=== PATIENT | male | born 1970 | race American Indian/Alaskan Native ===

== ENCOUNTER 2017-04-18 00:51 | Emergency (ER) | payer MEDICAID ==
[2017-04-18 00:51] VITALS: BMI 29.8
[2017-04-18 01:05] VITALS: RESP 18; TEMP 97.5; O2SAT 97
[2017-04-18] MEDS ORDERED: Lidocaine 1% Inj (20ml) INFIL ONE (01:07)
[2017-04-18] MEDS ORDERED: Lidocaine 1% Inj (20ml) ONE (01:09)
[2017-04-18] MEDS ORDERED: Lidocaine 2% Inj (20ml) ONE (01:10)
--- NOTE | 2017-04-18 01:12 | C.PDOC ---
46 year old male who presents to the ED with complaints of swelling, redness, and pain to the right index finger for the last 2 days. Patient reports he opened a box at work 1 week ago with a razor, and accidentally cut the affected finger. Patient admits the cut had healed well initially. Denies fever or drainage. Patient is up-to-date with tetanus shot. No other physical complaints at this time. (Li Ordoñez) History Per: Patient History/Exam Limitations: no limitations Onset/Duration Of Symptoms: Days (2 days ) Current Symptoms Are (Timing): Still Present Recent travel outside of the [place]: No Time Seen by Provider: 04/18/17 00:56 Chief Complaint (Nursing): Upper Extremity Problem/Injury Past Medical History Reviewed: Historical Data, Nursing Documentation, Vital Signs - Medical History PMH: No Chronic Diseases Surgical History: No Surg Hx Family History: States: No Known Family Hx - Social History Hx Alcohol Use: No Hx Substance Use: No - Immunization History Hx Tetanus Toxoid Vaccination: No Hx Influenza Vaccination: No Hx Pneumococcal Vaccination: No Vital Signs: Last Vital Signs Temp 97.5 F L 04/18/17 01:00 Pulse 70 04/18/17 01:39 Resp 18 04/18/17 01:00 BP 145/76 04/18/17 01:39 Pulse Ox 97 04/18/17 01:37 Review Of Systems Except As Marked, All Systems Reviewed And Found Negative. Skin: Positive for: Other (redness and swelling to right index finger) Physical Exam - Physical Exam Appears: Well, Non-toxic, No Acute Distress Skin: Warm, Dry, Other (erythema, swelling, tenderness and flunctuance over volar surface of right second digit at DIP) Head: Atraumatic, Normacephalic Eye(s): bilateral: Normal Inspection Oral Mucosa: Moist Extremity: Normal ROM, Capillary Refill (< 2 seconds), Other (see skin) Neurological/Psych: Oriented x3, Normal Speech, Other (no focal deficits) ED Course And Treatment O2 Sat by Pulse Oximetry: 97 (room air) Pulse Ox Interpretation: Normal - Incision & Drainage Of Abscess Anesthesia: Lidocaine 1% (digital block) Prep Used: Betadine Procedure: Incised W/Scalpel Blade#: (15), Drained Pus, Irrigated Cavity W/ Saline, Cultures Obtained And Sent To Lab Medical Decision Making Medical Decision Making: Impression: abscess of digit Plan: * I&D Progress: Patient tolerated well. Wound dressed with bandage. Dr Person advised no antibiotics needed after I&D. Patient instructed on wound care (Li Ordoñez) pt with a small abscess to the digit. PA acheived analgesia with a digitial block and performed and I/D. Reported purulent drainage approx 3 cc. There was no surrounding cellulitis. . Pt is not immunocompromised. There is no indication for abx at this time. (Shahid Person) Disposition Counseled Patient/Family Regarding: Diagnosis, Need For Followup - Disposition Disposition Time: 01:30 - POA Present On Arrival: None - Disposition Referrals: Susana Cruz MD [Staff Provider] - Disposition: HOME/ ROUTINE Condition: STABLE Additional Instructions: Keep wound clean and dry Change dressing 2 times daily follow up for wound check in 2 days with your primary doctor or clinic Instructions: Abscess Incision and Drainage (ED) Forms: [employer] (Czech) - Clinical Impression Clinical Impression: Abscess of finger of right hand - Scribe Statement The provider has reviewed the documentation as recorded by the Scribe - Scribe Statement Mary Jennings All medical record entries made by the Scribe were at my direction and personally dictated by me. I have reviewed the chart and agree that the record accurately reflects my personal performance of the history, physical exam, medical decision making, and the department course for this patient. I have also personally directed, reviewed, and agree with the discharge instructions and disposition. (Li Ordoñez)
[2017-04-18] MEDS ORDERED: Bacitracin 500 Units/gm Oint Foilpak UD ONE (01:31)
[2017-04-18 01:40] VITALS: BP 145/76; PULSE 70
== END 2017-04-18 01:40 | disposition home or self-care (01) ==
LOC: C.ER 00:51
DX: L02.511 Cutaneous abscess of right hand (principal)

== ENCOUNTER 2017-06-22 06:06 | Emergency (ER) | payer MEDICAID ==
[2017-06-22 06:07] VITALS: BMI 29.8
[2017-06-22 06:18] VITALS: O2SAT 97
--- NOTE | 2017-06-22 07:45 | C.PDOC ---
History Of Present Illness 47 y/o male presents to ED with complaints of cough associated with plueritic chest pain that began few days ago. Denies fever, SOB, or any other physical complaints. Time Seen by Provider: 06/22/17 07:31 Chief Complaint (Nursing): Cough, Cold, Congestion History Per: Patient History/Exam Limitations: no limitations Onset/Duration Of Symptoms: Days Current Symptoms Are (Timing): Still Present Recent travel outside of the [place]: No Past Medical History Reviewed: Historical Data, Nursing Documentation, Vital Signs Vital Signs: Last Vital Signs Temp 97.9 F 06/22/17 08:55 Pulse 64 06/22/17 08:55 Resp 18 06/22/17 08:55 BP 128/89 06/22/17 08:55 Pulse Ox 97 06/22/17 08:55 Surgical History: No Surg Hx Family History: States: No Known Family Hx - Social History Hx Alcohol Use: No Hx Substance Use: No - Immunization History Hx Tetanus Toxoid Vaccination: No Hx Influenza Vaccination: No Hx Pneumococcal Vaccination: No Review Of Systems Constitutional: Negative for: Fever, Chills Cardiovascular: Positive for: Chest Pain (pleuritic). Negative for: Palpitations Respiratory: Positive for: Cough. Negative for: Shortness of Breath Gastrointestinal: Negative for: Nausea, Vomiting, Diarrhea Neurological: Negative for: Weakness, Numbness Physical Exam - Physical Exam Appears: Well, Non-toxic, No Acute Distress Skin: Normal Color, Warm, Dry Head: Atraumatic, Normacephalic Eye(s): bilateral: Normal Inspection Ear(s): Bilateral: Normal Oral Mucosa: Moist Throat: Normal, No Erythema, No Exudate Neck: Supple Chest: Symmetrical, No Tenderness Cardiovascular: Rhythm Regular Respiratory: Normal Breath Sounds, No Decreased Breath Sounds, No Rales, No Rhonchi, No Wheezing Gastrointestinal/Abdominal: Soft, No Tenderness, No Distention, No Guarding, No Rebound Neurological/Psych: Oriented x3, Normal Speech, Normal Cognition ED Course And Treatment O2 Sat by Pulse Oximetry: 97 (RA) Pulse Ox Interpretation: Normal - Other Rad CXR X-Ray: Viewed By Me, Read By Radiologist Interpretation: Chest x-ray two views. History: Cough. Pleuritic chest pain. Comparison: None available. Findings: No focal infiltrate or effusion. Small nodular density in the right midlung zone may represent prominent vessel on end. Right hilar prominence. Heart size normal limits. Degenerative changes in the spine and shoulders. Impression: No focal infiltrate or effusion. Small nodular density in the right midlung zone may represent prominent vessel on end. Right hilar prominence. Medical Decision Making Medical Decision Making: Ordered CXR. 833 am cxr neg for infiltrate; ? nodular density vs vessel on end. discussed with patient, given copy of report to bring to PMD for re-eval. Disposition Counseled Patient/Family Regarding: Studies Performed, Diagnosis, Need For Followup - Disposition Referrals: Susana Cruz MD [Staff Provider] - Disposition: HOME/ ROUTINE Disposition Time: 08:35 Condition: GOOD Additional Instructions: Drink increased fluids, avoid dairy for a few days- makes secretions thick. Tylenol or Motrin for pain when coughing if needed. Follow up with Dr Cruz- bring copy of xray report with you rto show to him. Instructions: Acute Bronchitis, Adult (DC) Forms: General Discharge Instructions, [facility] (Maltese), Work Excuse - Clinical Impression Clinical Impression: Bronchitis - PA / BOAT OFFICER / Resident Statement MD/DO has reviewed & agrees with the documentation as recorded. - Scribe Statement The provider has reviewed the documentation as recorded by the Scribe Myron Mayer All medical record entries made by the Mannyibaj were at my direction and personally dictated by me. I have reviewed the chart and agree that the record accurately reflects my personal performance of the history, physical exam, medical decision making, and the department course for this patient. I have also personally directed, reviewed, and agree with the discharge instructions and disposition.
--- NOTE | 2017-06-22 08:29 | RAD ---
Chest x-ray two views History: Cough. Pleuritic chest pain. Comparison: None available. Findings: No focal infiltrate or effusion. Small nodular density in the right midlung zone may represent prominent vessel on end. Right hilar prominence. Heart size normal limits. Degenerative changes in the spine and shoulders. Impression: No focal infiltrate or effusion. Small nodular density in the right midlung zone may represent prominent vessel on end. Right hilar prominence.
[2017-06-22 08:56] VITALS: BP 128/89; PULSE 64; RESP 18; TEMP 97.9
== END 2017-06-22 08:56 | disposition home or self-care (01) ==
LOC: C.ER 06:06
DX: J40 Bronchitis, not specified as acute or chronic (principal)

== ENCOUNTER 2017-12-25 09:07 | Emergency (ER) | payer MEDICAID ==
[2017-12-25 09:08] VITALS: BMI 29.8
[2017-12-25 09:13] VITALS: BP 123/80; PULSE 81; RESP 18; TEMP 98; O2SAT 98
--- NOTE | 2017-12-25 09:31 | C.PDOC ---
History Of Present Illness 47 y/o male presents to the ED c/o chronic back pain for three days. The patient states the pain worsens with movement. He admits to taking oxycodone and methadone for pain management. The patient also c/o of muscle spasms. He denies any weakness or numbness. Time Seen by Provider: 12/25/17 09:18 Chief Complaint (Nursing): Back Pain History Per: Patient History/Exam Limitations: no limitations Onset/Duration Of Symptoms: Days Current Symptoms Are (Timing): Still Present Quality Of Discomfort: "Pain" Exacerbating Factor(s): Movement Recent travel outside of the [place]: No Past Medical History Reviewed: Historical Data, Nursing Documentation, Vital Signs Vital Signs: Last Vital Signs Temp 98.0 F 12/25/17 09:11 Pulse 81 12/25/17 09:11 Resp 18 12/25/17 09:11 BP 123/80 12/25/17 09:11 Pulse Ox 98 12/25/17 10:47 - Medical History Other PMH: Herniated Disc Surgical History: No Surg Hx Family History: States: Unknown Family Hx - Social History Hx Alcohol Use: No Hx Substance Use: No - Immunization History Hx Tetanus Toxoid Vaccination: No Hx Influenza Vaccination: No Hx Pneumococcal Vaccination: No Review Of Systems Except As Marked, All Systems Reviewed And Found Negative. Constitutional: Negative for: Fever Musculoskeletal: Positive for: Back Pain Skin: Negative for: Lesions Neurological: Negative for: Weakness, Numbness Physical Exam - Physical Exam Appears: Non-toxic, No Acute Distress Skin: Warm, No Ecchymosis Head: Atraumatic, Normacephalic Eye(s): bilateral: PERRL, EOMI Gastrointestinal/Abdominal: No Other (no gallbladder dysfunction) Back: Other (diffuse hypersenitivity of lower back) Extremity: Normal ROM Extremity: Bilateral: Normal Color And Temperature, Normal ROM Neurological/Psych: Oriented x3, Normal Speech Additional Physical Exam Comments: no saddle anesthesia ED Course And Treatment O2 Sat by Pulse Oximetry: 98 (RA) Pulse Ox Interpretation: Normal Medical Decision Making Medical Decision Making: Patient was advised to see [facility] for referral for spinal injection and surgical consult. Prescription for muscle relax given. Disposition - Disposition Referrals: Susana Cruz MD [Staff Provider] - Disposition: HOME/ ROUTINE Disposition Time: 09:30 Condition: GOOD Additional Instructions: SPENCER DRAUGHN, thank you for letting us take care of you today. Your provider was Jossue Loera DO and you were treated for BACK PAIN. The emergency medical care you received today was directed at your acute symptoms. If you were prescribed any medication, please fill it and take as directed. It may take several days for your symptoms to resolve. Return to the Emergency Department if your symptoms worsen, do not improve, or if you have any other problems. Please contact your doctor or call one of the physicians/clinics you have been referred to that are listed on the Patient Visit Information form that is included in your discharge packet. Bring any paperwork you were given at discharge with you along with any medications you are taking to your follow up visit. Our treatment cannot replace ongoing medical care by a primary care provider outside of the emergency department. Thank you for allowing the [facility] team to be part of your care today. Follow up with Dr. Cruz for spinal injection referrals and possible surgery. Prescriptions: Cyclobenzaprine [Cyclobenzaprine HCl] 10 mg PO Q8 PRN #20 tab PRN Reason: Muscle Spasm Instructions: Low Back Pain (DC) Forms: [facility] (Nigerian) - Clinical Impression Clinical Impression: Low back pain - PA / INSTRUCTIONAL MATERIALS DIRECTOR / Resident Statement MD/DO has reviewed & agrees with the documentation as recorded. - Scribe Statement The provider has reviewed the documentation as recorded by the Scribe (Anastacia Rojas) All medical record entries made by the Scribe were at my direction and personally dictated by me. I have reviewed the chart and agree that the record accurately reflects my personal performance of the history, physical exam, medical decision making, and the department course for this patient. I have also personally directed, reviewed, and agree with the discharge instructions and disposition.
== END 2017-12-25 09:57 | disposition home or self-care (01) ==
LOC: C.ER 09:07
DX: M54.5 Low back pain (principal)

== ENCOUNTER 2018-02-14 10:47 | Emergency (ER) | payer MEDICAID ==
[2018-02-14 11:05] VITALS: BMI 29.0
--- NOTE | 2018-02-14 11:30 | C.PDOC ---
History Of Present Illness 47 y/o male presents to the ED requesting detox from heroin. Patient admits he last used this morning, about 3 bags. At this time he offers no physical complaints. Patient otherwise denies any suicidal or homicidal ideation. Time Seen by Provider: 02/14/18 11:11 Chief Complaint (Nursing): Substance Abuse History Per: Patient History/Exam Limitations: no limitations Onset/Duration Of Symptoms: Days Current Symptoms Are (Timing): Still Present Suicide/Self Injury Attempted (Context): None Modifying Factor(s): Narcotics (Heroin) Past Medical History Reviewed: Historical Data, Nursing Documentation, Vital Signs Vital Signs: Last Vital Signs Temp 98.2 F 02/14/18 11:05 Pulse 88 02/14/18 11:05 Resp 16 02/14/18 11:05 BP 125/86 02/14/18 11:05 Pulse Ox 96 02/14/18 11:05 - Medical History PMH: Back Problems (herniated disc) Surgical History: No Surg Hx Family History: States: Unknown Family Hx - Social History Hx Alcohol Use: No Hx Substance Use: Yes - Immunization History Hx Tetanus Toxoid Vaccination: No Hx Influenza Vaccination: No Hx Pneumococcal Vaccination: No Review Of Systems Constitutional: Negative for: Fever Cardiovascular: Negative for: Chest Pain Respiratory: Negative for: Shortness of Breath Gastrointestinal: Negative for: Nausea, Vomiting Neurological: Negative for: Weakness, Dizziness Psych: Positive for: Other (heroin abuse). Negative for: Suicidal ideation, Withdrawal Physical Exam - Physical Exam Appears: Non-toxic, No Acute Distress Skin: Normal Color, Warm, Dry Head: Atraumatic, Normacephalic Eye(s): bilateral: Normal Inspection Oral Mucosa: Moist Neck: Normal ROM Chest: Symmetrical Cardiovascular: Rhythm Regular, No Murmur Respiratory: Normal Breath Sounds, No Accessory Muscle Use, Other (No res piratory distress) Gastrointestinal/Abdominal: Soft, No Tenderness, No Distention Extremity: Normal ROM, No Calf Tenderness, No Swelling Pulses: Left Dorsalis Pedis: Normal, Right Dorsalis Pedis: Normal Neurological/Psych: Oriented x3, Normal Speech ED Course And Treatment O2 Sat by Pulse Oximetry: 96 (RA) Pulse Ox Interpretation: Normal Medical Decision Making Medical Decision Making: Impression: 47 y/o male with Hx of heroin abuse, seeking detox 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 Horne. Disposition Counseled Patient/Family Regarding: Diagnosis - Disposition Disposition: HOME/ ROUTINE Disposition Time: 11:56 Condition: STABLE Additional Instructions: Follow recommendation given by the crisis team. Instructions: Drug Abuse and Drug Addiction (DC) Forms: [facility] (Luxembourger), General Discharge Instructions, Work Excuse - POA Present On Arrival: None - Clinical Impression Clinical Impression: Drug abuse - Scribe Statement The provider has reviewed the documentation as recorded by the Scribe (Piper Harvey) Provider Attestation: All medical record entries made by the Scribe were at my direction and personally dictated by me. I have reviewed the chart and agree that the record accurately reflects my personal performance of the history, physical exam, medical decision making, and the department course for this patient. I have also personally directed, reviewed, and agree with the discharge instructions and disposition.
[2018-02-14 12:17] VITALS: BP 136/79; PULSE 78; RESP 18; TEMP 98; O2SAT 98
== END 2018-02-14 12:17 | disposition home or self-care (01) ==
LOC: C.ER 10:47
DX: F19.10 Other psychoactive substance abuse, uncomplicated (principal)

== ENCOUNTER 2018-03-12 08:37 | Inpatient (IN) | payer MEDICAID ==
[2018-03-12 08:37] VITALS: BMI 29.0
[2018-03-12 09:11] LABS: BASO # 0.1 K/uL (0.0-0.2); BASO % 1.2 % (0.0-2.0); EOS # 0.1 K/uL (0.0-0.7); HEMOGLOBIN 13.8 g/dL (12.0-18.0); LYMPH # 2.3 K/uL (1.0-4.3); LYMPH % 45.7 % (20.0-40.0); MEAN CELL VOLUME 87.8 fL (80.0-94.0); MEAN CORPUSCULAR HEMOGLOBIN 29.5 pg (27.0-31.0); MEAN CORPUSCULAR HGB CONC 33.6 g/dL (33.0-37.0); MONO # 0.4 K/uL (0.0-0.8); MONO % 8.5 % (0.0-10.0); NEUT # 2.2 K/uL (1.8-7.0); NEUT % 42.6 % (50.0-75.0); NRBC % 0.1 % (0.0-2.0); RBC 4.69 Mil/uL (4.40-5.90); RED CELL DISTRIBUTION WIDTH 12.3 % (11.5-14.5); WHITE BLOOD COUNT 5.1 K/uL (4.8-10.8)
[2018-03-12 09:23] LABS: ALB/GLOB RATIO 1.4 (1.0-2.1); ALBUMIN 4.3 g/dL (3.5-5.0); ALT/SGPT 48 U/L (21-72); AST/SGOT 43 U/L (17-59); BLOOD UREA NITROGEN 16 mg/dL (9-20); CALCIUM 9.2 mg/dl (8.6-10.4); GFR NON-AFRICAN AMERICAN > 60
--- NOTE | 2018-03-12 09:46 | C.PDOC ---
History Of Present Illness Liborio Jaime is a 47 year old male presents to the ED requesting detoxification from heroin. Patient has been seen in the ED multiple times for same presentation. Denies any SI/HI, visual or auditory hallucinations, or depression. Reports last use of heroin was yesterday, 10-15 bags. Time Seen by Provider: 03/12/18 08:45 Chief Complaint (Nursing): Substance Abuse History Per: Patient History/Exam Limitations: no limitations Onset/Duration Of Symptoms: Days Current Symptoms Are (Timing): Still Present Suicide/Self Injury Attempted (Context): None Modifying Factor(s): Narcotics (heroin) Associated Symptoms: denies: Depression, Suicidal Thoughts, Suicidal Plan Past Medical History Reviewed: Historical Data, Nursing Documentation, Vital Signs Vital Signs: Last Vital Signs Temp 99 F 03/12/18 08:39 Pulse 69 03/12/18 08:39 Resp 18 03/12/18 08:39 BP 119/79 03/12/18 08:39 Pulse Ox 99 03/12/18 08:39 - Medical History PMH: Back Problems (herniated disc) Surgical History: No Surg Hx Family History: States: No Known Family Hx - Social History Hx Alcohol Use: No Hx Substance Use: Yes (heorin snorting daily) - Immunization History Hx Tetanus Toxoid Vaccination: No Hx Influenza Vaccination: No Hx Pneumococcal Vaccination: No Review Of Systems Except As Marked, All Systems Reviewed And Found Negative. Constitutional: Negative for: Fever, Chills Psych: Negative for: Depression, Suicidal ideation Physical Exam - Physical Exam Appears: Non-toxic Skin: Warm, Dry, No Rash Head: Normacephalic Eye(s): bilateral: Normal Inspection Nose: Normal Oral Mucosa: Moist Neck: Normal ROM, Supple Chest: Symmetrical Cardiovascular: Rhythm Regular Respiratory: Normal Breath Sounds, No Rales, No Rhonchi, No Wheezing Gastrointestinal/Abdominal: Soft, No Tenderness Extremity: Normal ROM Neurological/Psych: Oriented x3, Normal Speech Gait: Steady ED Course And Treatment - Laboratory Results Result Diagrams: 03/12/18 09:06 03/12/18 09:06 Lab Interpretation: Normal ECG Interpretation: Normal O2 Sat by Pulse Oximetry: 99 (RA) Pulse Ox Interpretation: Normal Progress Note: Case discussed and patient evaluated by crisis team who request admission to Detox under Dr Cooley's service Reassessment Condition: Unchanged - Physician Consult Information Physician Contacted: Juan David Cooley Outcome Of Conversation: admit Medical Decision Making Medical Decision Making: Plan - Bloodwork - UA [id number] Patient medically clear for detoxification. Disposition Discussed With Dr.: Juan David Cooley Doctor Will See Patient In The: Hospital - Disposition Disposition: HOSPITALIZED Disposition Time: 13:00 Condition: STABLE Forms: [facility] (Bahraini) - POA Present On Arrival: None - Clinical Impression Clinical Impression: Drug dependence, Drug abuse - PA / RECAPPER / Resident Statement MD/DO has reviewed & agrees with the documentation as recorded. - Scribe Statement The provider has reviewed the documentation as recorded by the Scribe Kira Salazar All medical record entries made by the Mannyibaj were at my direction and personally dictated by me. I have reviewed the chart and agree that the record accurately reflects my personal performance of the history, physical exam, medical decision making, and the department course for this patient. I have also personally directed, reviewed, and agree with the discharge instructions and disposition.
[2018-03-12 09:58] LABS: SQUAMOUS EPITHIAL < 1 /hpf (0-5); URINE BILIRUBIN NEGATIVE (NEGATIVE); URINE BLOOD NEGATIVE (NEGATIVE); URINE CLARITY Clear (Clear); URINE COLOR Yellow (YELLOW); URINE GLUCOSE (UA) NORMAL (Normal); URINE LEUKOCYTE ESTERASE NEG Leu/uL (Negative); URINE PROTEIN NEGATIVE (NEGATIVE)
[2018-03-12 10:14] LABS: BARBITURATES, UR NEGATIVE (NEGATIVE); BENZODIAZEPINES, UR NEGATIVE (NEGATIVE); PHENCYCLIDINE, UR NEGATIVE (NEGATIVE)
[2018-03-12 10:18] LABS: OPIATES, UR POSITIVE (NEGATIVE)
--- NOTE | 2018-03-12 14:02 | PCM.BM ---
<Shira Beltre - Last Filed: 03/12/18 14:01> Treatment assets and liabiliti Patient Assests: cooperative, insightful, self-reliant, ADL independent, physically healthy, negotiates basic needs, good past tx response, cognitively intact, good interpersonal skills, strong maeve Patient Liabilities: relationship conflicts, substance abuse - Milieu Protocol Maintain good personal hygiene: daily Encourage regular showers, daily Remind patient to perform daily oral care, daily Assist patient to perform ADL's, every shift Encourage regular showers, every shift Remind patient to perform daily oral care, every shift Assist patient to perform ADL's Maintain personal safety: daily Educate patient to report safety concerns to staff, daily Monitor environment for contraband/sharps, every shift Educate patient to report safety concerns to staff, every shift Monitor environment for contraband/sharps Medication safety: Monitor for expected outcome, potential side effects: every shift, daily, Assess barriers to learning: every shift, daily, Assess readiness for medication education: every shift, daily <Carlee Mckeon - Last Filed: 03/14/18 11:14> Family Contact Family involvement: Famliy/SO not involved - Goals for Treatment Patient goals for treatment: Complete detox and discuss aftercare options with counseling staff. Discharge/Continuing Care - Education Needs Education Needs: Patient Medication, Patient Diagnosis/Disease Process, Patient Coping Skills, Patient Anger Management skills, Patient Placement options, Patient Community resources - Discharge Discharge Criteria: No longer exhibiting s/s of withdrawal, Reduction of target symptoms Discharge to:: Other - Additional Comments 03/14/18 11:13 Pt. is refusing referrals for aftercare at this time. Counseling staff will continue to discuss options for pt. - Treatment Team Participation Discussed with Family/SO: No Was Patient/Family/SO present at Treatment Team Meeting: Yes
[2018-03-12] MEDS ORDERED: Aluminum Hydroxide/Magnesium Hydroxide Susp (30 mL) PO PRN (14:21)
--- NOTE | 2018-03-13 15:27 | PCM.PSYCH ---
Initial Psychiatric Evaluation - Initial Psychiatric Evaluation Type of Admission: Voluntary Legal Status: Capacity Chief Complaint (in patient's own words): "I need to stop this" History of Present Illness and Precipitating Events: The pt is seen, chart reviewed, case discussed. He is a 47 y/o AAM, single w 3 children: 32, 11 and 10 y/o. 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 First time was 12 y/o He has been to detox around 20 times and rehab 2x. No MAT but goes to NA at times Longest sobriety was 3 years and ended this year. He purchases methadone from the street to prevent wdw Used cocaine in the past Smokes 10-20 cug/d Denies others Psych hx: Depressed and anxious but no admissions Family psych hx: Brother used drugs and has schizophrenia Medical hx: Denies Current Medications: Active Medications Generic Name Dose Route Start Last Admin Trade Name Freq PRN Reason Stop Dose Admin Acetaminophen 650 mg 03/12/18 14:21 03/13/18 05:57 Tylenol 325mg Tab PO 650 mg Q4H PRN Administration Fever greater than 101 F Al Hydrox/Mg Hydrox/Simethicone 30 ml 03/12/18 14:21 Maalox 30 Ml PO TID PRN Indigestion / Heartburn Clonidine HCl 0.1 mg 03/12/18 14:21 Catapres PO Q4 PRN COWS Score More or Equal to 5 Dicyclomine HCl 10 mg 03/12/18 14:21 Bentyl PO Q6 PRN Muscle spasm Hydroxyzine HCl 25 mg 03/12/18 14:22 03/13/18 12:55 Atarax PO 25 mg Q6 PRN Administration Agitation Loperamide HCl 2 mg 03/12/18 14:21 Imodium PO Q8 PRN Diarrhea Methadone HCl 15 mg 03/13/18 10:00 03/13/18 10:34 Methadone PO 03/17/18 09:59 15 mg Q24H MAYE Administration Taper Mirtazapine 15 mg 03/13/18 22:00 Remeron PO HS MAYE Ondansetron HCl 4 mg 03/12/18 14:21 Zofran Tab PO Q8 PRN Nausea/Vomiting Trazodone HCl 50 mg 03/12/18 22:00 03/12/18 21:51 Desyrel PO 50 mg HS MAYE Administration Past Psychiatric History - Past Psychiatric History Previous Treatment History: None Pertinent Medical Hx (Current Medical&Sleep Prob, Allergies): Allergies Allergy/AdvReac Type Severity Reaction Status Date / Time No Known Allergies Allergy Verified 12/25/17 09:11 No Known Home Med 03/12/18 Review of Systems - Psychiatric Psychiatric: Abnormal Sleep Pattern, Anhedonia, Anxiety, Change in Appetite, Depression, Difficulty Concentrating, Irritability, Mood Swings. absent: Hallucinations, Homicidal Ideation, Paranoia, Suicidal Ideation Mental Status Examination - Personal Presentation Personal Presentation: Looks stated age - Affect Affect: Constricted - Motor Activity Motor Activity: Calm - Reliability in Providing Information Reliability in Providing Information: Good - Speech Speech: Organized - Mood Mood: Depressed, Anxious - Formal Thought Process Formal Thought Process: No Impairment - Cognitive Functions Orientation: Person, Place, Situation, Time Sensorium: Alert Attention/Concentration: Attentive Abstract Thinking: [place] Estimate of Intelligence: Average Judgement: Intact, as evidence by: Insight regarding need for hospitalization Memory: Recent intact, as evidence by: Ability to recall events of the day, Remote intact, as evidenced by: Abilit to recall sig. life events - Risk Risk: Withdrawal, Diminished functioning - Strength & Assets Inventory Strength & Assets Inventory: Cooperative - Limitations Limitations: Living alone, Other DSM 5 DX - DSM 5 DSM 5 Diagnosis: Opioid withdrawal Opioid use d/o - severe Cocaine use d/o - in remission Depressive d/o - unspecified Tobacco use d/o - severe - Recommended/Plan of Treatment Treatment Recommendations and Plan of Treatment: Taper with methadone Gabapentin for augmentation if needed Remeron for depression and insomnia As needed medications All risks, benefits and alternatives of the meds discussed, and the pt agreed and understood. Attend groups and activities Supportive therapy and psychoeducation [place] for abstinence CBT for relapse prevention Encourage MAT Refer to rehab or IOP, and self-help groups Teach healthy lifestyle methods, i.e. diet, exercise, meditation Smoking cessation with [place] Nicotine patch if needed 34 min Projected ELOS: 4-5 days Prognosis: good w treatment - Smoking Cessation Smoking Cessation Initiated: Yes
--- NOTE | 2018-03-14 17:55 | PCM.PYCHPN ---
Psychiatric Progress Note - Psychiatric Progress Note Patient seen today, length of contact: 15 min Patient Chief Complaint: "I need to stop this" Mental Status Examination - Cognitive Function Orientation: Person, Place, Situation, Time - Mood Mood: Depressed, Anxious - Affect Affect: Constricted - Formal Thought Process Formal Thought Process: No Impairment - Homicidal Ideation Homicidal Ideation: No Goal/Treatment Plan - Goal/Treatment Plan Progress Toward Problem(s) and Goals/Treatment Plan: Taper with methadone Gabapentin for augmentation if needed Remeron for depression and insomnia As needed medications All risks, benefits and alternatives of the meds discussed, and the pt agreed and understood. Attend groups and activities Supportive therapy and psychoeducation [place] for abstinence CBT for relapse prevention Encourage MAT Refer to rehab or IOP, and self-help groups Teach healthy lifestyle methods, i.e. diet, exercise, meditation Smoking cessation with [place] Nicotine patch if needed 34 min
[2018-03-15 06:10] VITALS: BP 98/60; PULSE 61; RESP 20; TEMP 98.3; O2SAT 100
--- NOTE | 2018-03-15 08:30 | PCM.PYCHDC ---
Mental Status Examination - Mental Status Examination Orientation: Person Discharge Summary - Discharge Note Consultations:: List each consultation separately and include: 1. Reason for request. 2. Findings. 3. Follow-up Summary of Hospital Course include:: 1. Description of specific treatment plan utilized for patients during their course of treatmen. 2. Summarize the time- course for resolution of acute symptoms and/or regressed behaviors. 3. Describe issues identified and worked on during hospitalization. 4. Describe medication utilized. 5. Describe medical problems identified and treated. 6. Reassessment of suicide risk Summary of Hospital Course: The pt is seen, chart reviewed, case discussed. He is a 47 y/o AAM, single w 3 children: 32, 11 and 10 y/o. 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 First time was 12 y/o He has been to detox around 20 times and rehab 2x. No MAT but goes to NA at times Longest sobriety was 3 years and ended this year. He purchases methadone from the street to prevent wdw Used cocaine in the past Smokes 10-20 cug/d Denies others Psych hx: Depressed and anxious but no admissions Family psych hx: Brother used drugs and has schizophrenia Medical hx: Denies He was unmotivated and will only go to NA meetings, risk of relapse, OD and even discussed. Rehab and MAT recommended. At least IOP. He said he would think about it. - Final Diagnosis (DSM 5) Condition upon Discharge: STABLE Disposition: HOME/ ROUTINE Follow-up Treatment Plan: Taper with methadone Gabapentin for augmentation if needed Remeron for depression and insomnia As needed medications All risks, benefits and alternatives of the meds discussed, and the pt agreed and understood. Attend groups and activities Supportive therapy and psychoeducation [place] for abstinence CBT for relapse prevention Encourage MAT Refer to rehab or IOP, and self-help groups Teach healthy lifestyle methods, i.e. diet, exercise, meditation Smoking cessation with [place] Nicotine patch if needed 34 min Prescriptions/Medication Reconciliation: hydrOXYzine HCl [Atarax] 25 mg PO BID PRN #30 tab PRN Reason: Agitation Mirtazapine [Remeron] 15 mg PO HS #30 tab
== END 2018-03-15 09:30 | disposition home or self-care (01) ==
LOC: C.ER 08:37 → C.7D 12:36
PROVIDERS: ADMIT Psychiatry & Neurology Psychiatry; ATTEND Psychiatry & Neurology Psychiatry
DX: F11.23 Opioid dependence with withdrawal (principal); F32.9 Major depressive disorder, single episode, unspecified; G47.00 Insomnia, unspecified; Z72.0 Tobacco use; Z81.8 Family history of other mental and behavioral disorders

== ENCOUNTER 2018-04-25 00:31 | Emergency (ER) | payer MEDICAID ==
[2018-04-25 00:31] VITALS: BMI 29.0
[2018-04-25] MEDS ORDERED: Sodium Chloride 0.9% 1,000 ML IV ONE (01:03)
--- NOTE | 2018-04-25 01:03 | C.PDOC ---
History Of Present Illness 47 year old male with PMHx of chronic back pain presents to the ED c/o worsening back pain after coughing and movement for the past 3 days. Patient denies fever, chills, nausea, vomit, diarrhea, bowel incontinence, weakness, numbness, saddle anesthesia. Time Seen by Provider: 04/25/18 01:03 Chief Complaint (Nursing): Back Pain History Per: Patient History/Exam Limitations: no limitations Onset/Duration Of Symptoms: Days Current Symptoms Are (Timing): Still Present Quality Of Discomfort: "Pain" Previous Symptoms: Back Pain Exacerbating Factor(s): Movement Recent travel outside of the [place]: No Additional History Per: Patient Past Medical History Reviewed: Historical Data, Nursing Documentation, Vital Signs Vital Signs: Last Vital Signs Temp 98.3 F 04/25/18 00:32 Pulse 63 04/25/18 00:32 Resp 18 04/25/18 00:32 BP 123/82 04/25/18 00:32 Pulse Ox 98 04/25/18 00:32 - Medical History PMH: Anxiety, Back Problems (herniated disc), Depression Denies: Diabetes, Hepatitis, HIV, HTN, Chronic Kidney Disease, Seizures, Sexually Transmitted Disease Surgical History: No Surg Hx Family History: States: Unknown Family Hx - Social History Hx Alcohol Use: No (Pt. denies) Hx Substance Use: No - Immunization History Hx Tetanus Toxoid Vaccination: No Hx Influenza Vaccination: No Hx Pneumococcal Vaccination: No Review Of Systems Constitutional: Negative for: Fever, Chills Cardiovascular: Negative for: Chest Pain Respiratory: Negative for: Shortness of Breath Gastrointestinal: Negative for: Nausea, Vomiting, Abdominal Pain Musculoskeletal: Positive for: Back Pain Skin: Negative for: Rash Neurological: Negative for: Weakness, Numbness Physical Exam - Physical Exam Appears: Non-toxic, No Acute Distress Skin: Warm, Dry Head: Normacephalic Eye(s): bilateral: Normal Inspection Neck: Supple Chest: Symmetrical Cardiovascular: Rhythm Regular Respiratory: No Rales, Rhonchi (bases bilateral), No Wheezing Gastrointestinal/Abdominal: Soft, No Tenderness, No Guarding, No Rebound Extremity: Bilateral: Atraumatic, Normal ROM, Painful To Bear Weight Neurological/Psych: Oriented x3, Normal Speech, Normal Cognition Gait: Steady ED Course And Treatment - Laboratory Results Result Diagrams: 04/25/18 01:25 04/25/18 01:44 ECG: Interpreted By Me, Viewed By Me ECG Rhythm: Sinus Rhythm (65), Nonspecific Changes O2 Sat by Pulse Oximetry: 98 (ON RA) Pulse Ox Interpretation: Normal - Radiology CXR: Interpreted by Me, Viewed By Me CXR Interpretation: No: Infiltrates, Fracture, Pnemothorax Progress Note: Plan: - VBG. - EKG. - Labs. - CXR. - Duoneb. - IV fluids. - Blood culture. - Influenza A B Reevaluation Time: 03:30 Reassessment Condition: Improved Medical Decision Making Medical Decision Making: Upon provider reevaluation patient is feeling better, is medically stable, and requires no further treatment in the ED at this time. Patient will be discharged home with Rx for z pack, tramamdol and albuterol . Counseling was provided and all questions were answered regarding diagnosis and need for follow up with dr bellamy. There is agreement to discharge plan. Return if symptoms persist or wor sen. Disposition Counseled Patient/Family Regarding: Studies Performed, Diagnosis, Need For Followup, Rx Given - Disposition Referrals: Susana Bellamy MD [Staff Provider] - Disposition: HOME/ ROUTINE Disposition Time: 01:03 Condition: FAIR Additional Instructions: Please return if symptoms recur Prescriptions: Albuterol HFA [Ventolin HFA 90 mcg/actuation (8 g)] 2 puff IH [id number] #1 puff Azithromycin [Zithromax Tri-Cheikh] 500 mg PO DAILY #3 tablet traMADol [Ultram] 50 mg PO TID PRN #15 tab PRN Reason: Pain, Severe (8-10) Instructions: Acute Bronchitis, Low Back Pain (DC) Forms: [facility] (Persian) - Clinical Impression Clinical Impression: Low back pain, Bronchitis - Scribe Statement The provider has reviewed the documentation as recorded by the Scribe Juan Manuel Hare All medical record entries made by the Scribe were at my direction and personally dictated by me. I have reviewed the chart and agree that the record accurately reflects my personal performance of the history, physical exam, medical decision making, and the department course for this patient. I have also personally directed, reviewed, and agree with the discharge instructions and disposition.
[2018-04-25] MEDS ORDERED: Albuterol-Ipratrop 3 mg / 0.5 (3 ml) UD ONE (01:30)
[2018-04-25 01:31] LABS: BASO # 0.1 K/uL (0.0-0.2); BASO % 1.5 % (0.0-2.0); EOS # 0.1 K/uL (0.0-0.7); HEMOGLOBIN 13.3 g/dL (12.0-18.0); LYMPH # 2.1 K/uL (1.0-4.3); LYMPH % 37.4 % (20.0-40.0); MEAN CELL VOLUME 90.1 fL (80.0-94.0); MEAN CORPUSCULAR HEMOGLOBIN 29.3 pg (27.0-31.0); MEAN CORPUSCULAR HGB CONC 32.5 g/dL (33.0-37.0); MEAN PLATELET VOLUME 9.6 fL (7.2-11.7); MONO # 0.4 K/uL (0.0-0.8); MONO % 7.2 % (0.0-10.0); NEUT # 2.9 K/uL (1.8-7.0); NEUT % 51.9 % (50.0-75.0); RBC 4.54 Mil/uL (4.40-5.90); RED CELL DISTRIBUTION WIDTH 12.7 % (11.5-14.5); WHITE BLOOD COUNT 5.5 K/uL (4.8-10.8)
[2018-04-25] MEDS: Albuterol-Ipratrop 3 mg / 0.5 (3 ml) UD IH SCH (01:33)
[2018-04-25 01:34] LABS: VENOUS BLOOD GAS BASE EXCESS 3.1 mmol/L (0.0-2.0); VENOUS BLOOD GAS PCO2 51 mmHg (40-60); VENOUS BLOOD GAS PO2 48 mm/Hg (30-55); VENOUS BLOOD PH 7.37 (7.32-7.43)
[2018-04-25 01:59] LABS: ALB/GLOB RATIO 1.4 (1.0-2.1); ALBUMIN 4.1 g/dL (3.5-5.0); ALT/SGPT 39 U/L (21-72); AST/SGOT 30 U/L (17-59); BLOOD UREA NITROGEN 17 mg/dL (9-20); CALCIUM 8.7 mg/dl (8.6-10.4); GFR NON-AFRICAN AMERICAN > 60
[2018-04-25 02:27] LABS: INR 1.3; PROTHROMBIN TIME 14.2 SECONDS (9.7-12.2)
[2018-04-25 02:40] VITALS: BP 126/81; PULSE 77; RESP 17; TEMP 97.9
[2018-04-25 02:45] VITALS: O2SAT 98
--- NOTE | 2018-04-25 09:50 | RAD ---
Date of service: 04/25/2018 PROCEDURE: CHEST RADIOGRAPH, 1 VIEW HISTORY: SOB COMPARISON: 06/22/2017. FINDINGS: LUNGS: The lungs are well inflated and clear. PLEURA: No pneumothorax or pleural effusion. CARDIOVASCULAR: The heart is normal in size. No aortic atherosclerotic calcifications present. OSSEOUS STRUCTURES: Within normal limits for the patient's age. VISUALIZED UPPER ABDOMEN: Normal. OTHER FINDINGS: None. IMPRESSION: No active pulmonary disease.
--- NOTE | 2018-04-25 18:25 | CARD ---
APPROVED REPORT Date of service: 04/25/2018 EKG Measurement Heart [id number] <Conclusion> Normal sinus rhythm Normal ECG
== END 2018-04-25 03:42 | disposition home or self-care (01) ==
LOC: C.ER 00:31
DX: J40 Bronchitis, not specified as acute or chronic (principal); M54.5 Low back pain; F17.210 Nicotine dependence, cigarettes, uncomplicated
CPT/HCPCS: 71045; 80053; 82803; 85025; 85610; 85730; 87040; 87804; 93005; 94640; 96361; 96374; 99284; J1885; J7030

== ENCOUNTER 2018-08-03 18:42 | Inpatient (IN) | payer MEDICAID ==
[2018-08-03 18:42] VITALS: BMI 29.0
--- NOTE | 2018-08-03 20:00 | C.PDOC ---
History Of Present Illness Patient is a 48-year-old male who presents to the emergency department requesting detox. Patient states he snorts heroin. Has started using heroin since he was a young person. He has no other medical problem. Time Seen by Provider: 08/03/18 19:06 Chief Complaint (Nursing): Substance Abuse History Per: Patient History/Exam Limitations: no limitations Onset/Duration Of Symptoms: Hrs Current Symptoms Are (Timing): Still Present Modifying Factor(s): Other (heroin ) Additional History Per: Patient Past Medical History Reviewed: Historical Data, Nursing Documentation, Vital Signs Vital Signs: Last Vital Signs Temp 98.3 F 08/03/18 18:47 Pulse 57 L 08/03/18 18:47 Resp 20 08/03/18 18:47 BP 137/88 08/03/18 18:47 Pulse Ox 97 08/03/18 18:47 - Medical History PMH: Anxiety, Back Problems (herniated disc), Depression Denies: Diabetes, Hepatitis, HIV, HTN, Chronic Kidney Disease, Seizures, Sexually Transmitted Disease Surgical History: No Surg Hx Family History: States: Unknown Family Hx - Social History Hx Alcohol Use: No (Pt. denies) Hx Substance Use: Yes - Immunization History Hx Tetanus Toxoid Vaccination: No Hx Influenza Vaccination: No Hx Pneumococcal Vaccination: No Review Of Systems Psych: Positive for: Other (heroin detox ). Negative for: Suicidal ideation Physical Exam - Physical Exam Appears: Non-toxic, No Acute Distress Skin: Normal Color, Warm, Dry Head: Atraumatic, Normacephalic Eye(s): bilateral: Normal Inspection Oral Mucosa: Moist Neck: Supple Chest: Symmetrical, No Deformity, No Tenderness Cardiovascular: Rhythm Regular, No Murmur Respiratory: Normal Breath Sounds, No Rales, No Rhonchi, No Wheezing Gastrointestinal/Abdominal: Soft, No Tenderness, No Guarding, No Rebound Extremity: Normal ROM, Capillary Refill (less than 2 seconds ) Neurological/Psych: Oriented x3, Normal Speech, Normal Cognition ED Course And Treatment - Laboratory Results Result Diagrams: 08/03/18 20:02 08/03/18 20:02 O2 Sat by Pulse Oximetry: 97 (on RA ) Pulse Ox Interpretation: Normal Medical Decision Making Medical Decision Making: Progress: Bloodwork and urinalysis ordered and reviewed. On reassessment, patient is resting comfortably and showing no signs of distress. Disposition - Disposition Disposition: HOSPITALIZED Disposition Time: 21:43 Condition: GUARDED Forms: [facility] (German) - Clinical Impression Clinical Impression: Drug dependence - Scribe Statement The provider has reviewed the documentation as recorded by the Scribe (Bekah Goss) Provider Attestation: All medical record entries made by the Scribe were at my direction and person ally dictated by me. I have reviewed the chart and agree that the record accurately reflects my personal performance of the history, physical exam, medical decision making, and the department course for this patient. I have also personally directed, reviewed, and agree with the discharge instructions and disposition. Decision To Admit - Pt Status Changed To: Hospital Disposition Of: Inpatient - Admit Certification Admit to Inpatient:: After my assessment, the patient will require hospitalization for at least two midnights. This is because of the severity of symptoms shown, intensity of services needed, and/or the medical risk in this patient being treated as an outpatient. - InPatient: Physician Admission Certification: I certify that this patient requires 2 or more midnights of care for the following reason:: needs medical detox - . Bed Request Type: Detox Admitting Physician: Juan David Cooley Patient Diagnosis: Drug dependence
[2018-08-03 20:08] LABS: BASO % 1.2 % (0.0-2.0); EOS # 0.1 K/uL (0.0-0.7); EOS % 2.9 % (0.0-4.0); HEMOGLOBIN 12.9 g/dL (12.0-18.0); LYMPH # 1.7 K/uL (1.0-4.3); LYMPH % 45.8 % (20.0-40.0); MEAN CORPUSCULAR HEMOGLOBIN 29.3 pg (27.0-31.0); MEAN CORPUSCULAR HGB CONC 33.3 g/dL (33.0-37.0); MEAN PLATELET VOLUME 9.1 fL (7.2-11.7); MONO # 0.3 K/uL (0.0-0.8); MONO % 6.9 % (0.0-10.0); NEUT # 1.6 K/uL (1.8-7.0); NEUT % 43.2 % (50.0-75.0); NRBC % 0.2 % (0.0-2.0); RBC 4.41 Mil/uL (4.40-5.90); RED CELL DISTRIBUTION WIDTH 12.7 % (11.5-14.5); WHITE BLOOD COUNT 3.7 K/uL (4.8-10.8)
[2018-08-03 20:11] LABS: MEAN CELL VOLUME 88.1 fL (80.0-94.0)
[2018-08-03 20:21] LABS: ALB/GLOB RATIO 1.6 (1.0-2.1); ALBUMIN 4.2 g/dL (3.5-5.0); ALT/SGPT 41 U/L (21-72); AST/SGOT 38 U/L (17-59); BLOOD UREA NITROGEN 13 mg/dL (9-20); CALCIUM 9.3 mg/dl (8.6-10.4); GFR NON-AFRICAN AMERICAN > 60
[2018-08-03 20:37] LABS: SQUAMOUS EPITHIAL < 1 /hpf (0-5); URINE BILIRUBIN NEGATIVE (NEGATIVE); URINE BLOOD NEGATIVE (NEGATIVE); URINE CLARITY Hazy (Clear); URINE COLOR Yellow (YELLOW); URINE GLUCOSE (UA) NORMAL (Normal); URINE LEUKOCYTE ESTERASE NEG Leu/uL (Negative); URINE PROTEIN NEGATIVE (NEGATIVE)
[2018-08-03 20:45] LABS: BARBITURATES, UR NEGATIVE (NEGATIVE); BENZODIAZEPINES, UR NEGATIVE (NEGATIVE); PHENCYCLIDINE, UR NEGATIVE (NEGATIVE)
[2018-08-03 20:58] LABS: OPIATES, UR POSITIVE (NEGATIVE)
--- NOTE | 2018-08-03 22:22 | PCM.BM ---
<Avis Thomas - Last Filed: 08/03/18 22:20> Treatment Plan Problems - Problems identified on initial assessmt Defensive Coping Date Initiated: 08/03/18 Time Initiated: 22:20 Assessment reference: NA Status: Active Chronic Low Self Esteem Date Initiated: 08/03/18 Time Initiated: 22:21 Assessment reference: NA Status: Active Denial Date Initiated: 08/03/18 Time Initiated: 22:21 Assessment reference: NA Treatment assets and liabiliti Patient Assests: ADL independent, physically healthy, negotiates basic needs, cognitively intact Patient Liabilities: substance abuse - Milieu Protocol Maintain good personal hygiene: daily Encourage regular showers, daily Remind patient to perform daily oral care, daily Assist patient to perform ADL's Conduct patient checks and document Observation sheet: Q15 minutes Maintain personal safety: every shift Educate patient to report safety concerns to staff, every shift Monitor environment for contraband/sharps Medication safety: Monitor for expected outcome, potential side effects: every shift, Assess barriers to learning: every shift, Assess readiness for medication education: every shift <Carlee Mckeon - Last Filed: 08/04/18 13:39> Family Contact Family involvement: No known Family/SO - Goals for Treatment Patient goals for treatment: Complete detox and discuss aftercare options with [facility]. Discharge/Continuing Care - Education Needs Education Needs: Patient Medication, Patient Diagnosis/Disease Process, Patient Coping Skills, Patient Anger Management skills, Patient Placement options, Patient Community resources - Discharge Discharge Criteria: No longer exhibiting s/s of withdrawal, Reduction of target symptoms Discharge to:: Other (Aftercare TBD as pt. is unsure as of this writing.) - Treatment Team Participation Patient/Family/SO Statement: 08/04/18 13:39 "I don't know yet." Discussed with Family/SO: No Was Patient/Family/SO present at Treatment Team Meeting: Yes
--- NOTE | 2018-08-04 09:58 | PCM.PSYCH ---
Initial Psychiatric Evaluation - Initial Psychiatric Evaluation Type of Admission: Voluntary Legal Status: Capacity Chief Complaint (in patient's own words): "Not well" History of Present Illness and Precipitating Events: The pt is seen, chart reviewed, case discussed. He is known from previous admission. He is a 48 y/o AAM, single w 3 children: 32, 11 and 10 y/o. 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 Children are with their mother. He uses 15 bags of heroin by snorting for several months now. First time was 12 y/o He also states that he has trouble staying clean because his friends are also doing heroin. Today he states that he is angry and frustrated with himself for continuing to do heroin. 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 He began using more frequently after being laid off. Pt admits to buying methadone on the streets. Last used methadone 4 days ago. He has been to detox around 20 times and rehab 2x. No MAT but goes to at times Longest sobriety was 3 years and ended this year. He purchases methadone from the street to prevent wdw Used cocaine in the past Smokes 10-20 cig/d Denies others Currently he feels he is getting sick. COWS is around 7 and increasing. He will likely need meds this afternoon. Psych hx: Depressed and anxious but no admissions. He was given Remeron but he is non-compliant. Family psych hx: Brother used drugs and has schizophrenia Medical hx: Denies Current Medications: Active Medications Generic Name Dose Route Start Last Admin Trade Name Freq PRN Reason Stop Dose Admin Clonidine HCl 0.1 mg 08/03/18 22:18 08/03/18 23:22 Catapres PO 0.1 mg Q6 PRN Administration opiate withdrawal Hydroxyzine HCl 25 mg 08/03/18 22:18 08/04/18 09:23 Atarax PO 25 mg Q6 PRN Administration Anxiety Ibuprofen 600 mg 08/03/18 23:19 Motrin Tab PO Q6 PRN Pain, moderate (4-7) Trazodone HCl 50 mg 08/03/18 22:17 08/03/18 23:22 Desyrel PO 50 mg HS PRN Administration Insomnia Past Psychiatric History - Past Psychiatric History Previous Treatment History: Intensive Outpatient Pertinent Medical Hx (Current Medical&Sleep Prob, Allergies): Allergies Allergy/AdvReac Type Severity Reaction Status Date / Time No Known Allergies Allergy Verified 08/03/18 18:51 No Known Home Med 08/03/18 Review of Systems - Psychiatric Psychiatric: Abnormal Sleep Pattern, Anhedonia, Anxiety, Change in Appetite, Depression, Difficulty Concentrating, Irritability. absent: Hallucinations, Homicidal Ideation, Paranoia, Suicidal Ideation Mental Status Examination - Personal Presentation Personal Presentation: Looks older than stated age - Affect Affect: Constricted - Motor Activity Motor Activity: Calm - Reliability in Providing Information Reliability in Providing Information: Good - Speech Speech: Organized - Mood Mood: Depressed, Anxious - Formal Thought Process Formal Thought Process: No Impairment - Cognitive Functions Orientation: Person, Place, Situation, Time Sensorium: Alert Attention/Concentration: Easily distracted Estimate of Intelligence: Average Judgement: Intact, as evidence by: Insight regarding need for hospitalization Memory: Recent intact, as evidence by: Ability to recall events of the day, Remote intact, as evidenced by: Ability to recall historical events - Risk Risk: Withdrawal, Diminished functioning - Strength & Assets Inventory Strength & Assets Inventory: Cooperative - Limitations Limitations: Living alone, Other DSM 5 DX - DSM 5 DSM 5 Diagnosis: Opioid withdrawal Opioid use d/o - severe Cocaine use d/o - in remission Depressive d/o - unspecified Tobacco use d/o - severe - Recommended/Plan of Treatment Treatment Recommendations and Plan of Treatment: Taper with subutex Gabapentin for augmentation if needed Remeron for depression and insomnia As needed medications All risks, benefits and alternatives of the meds discussed, and the pt agreed and understood. Attend groups and activities Supportive therapy and psychoeducation [place] for abstinence CBT for relapse prevention Encourage MAT, especially subutex, or Vivitrol. Refer to rehab or IOP, and self-help groups Teach healthy lifestyle methods, i.e. diet, exercise, meditation Smoking cessation with [place] Nicotine patch if needed 34 min Projected ELOS: 4 days
[2018-08-04] MEDS ORDERED: Buprenorphine Hydrochloride 2 mg SL ONE ×2 (20:00→21:00)
[2018-08-05] MEDS ORDERED: Aluminum Hydroxide/Magnesium Hydroxide Susp (30 mL) PO PRN (08:54)
[2018-08-05] MEDS: Buprenorphine Hydrochloride 2 mg SL SCH (10:41)
--- NOTE | 2018-08-05 13:01 | PCM.PYCHPN ---
Psychiatric Progress Note - Psychiatric Progress Note Patient Chief Complaint: "Not well" Medication Change: Yes Medical Record Reviewed: Yes Mental Status Examination - Cognitive Function Orientation: Person, Place, Situation, Time - Mood Mood: Depressed, Anxious - Affect Affect: Constricted - Formal Thought Process Formal Thought Process: No Impairment Goal/Treatment Plan - Goal/Treatment Plan Progress Toward Problem(s) and Goals/Treatment Plan: Taper with subutex Gabapentin for augmentation if needed Remeron for depression and insomnia As needed medications All risks, benefits and alternatives of the meds discussed, and the pt agreed and understood. Attend groups and activities Supportive therapy and psychoeducation [place] for abstinence CBT for relapse prevention Encourage MAT, especially subutex, or Vivitrol. Refer to rehab or IOP, and self-help groups Teach healthy lifestyle methods, i.e. diet, exercise, meditation Smoking cessation with [place] Nicotine patch if needed 34 min
[2018-08-06] MEDS ORDERED: Buprenorphine Hydrochloride 2 mg SL SCH (08:54)
[2018-08-06] MEDS: Buprenorphine Hydrochloride 2 mg SL SCH (09:45)
--- NOTE | 2018-08-07 08:59 | PCM.PYCHDC ---
Mental Status Examination - Mental Status Examination Orientation: Person Discharge Summary - Discharge Note Consultations:: List each consultation separately and include: 1. Reason for request. 2. Findings. 3. Follow-up Summary of Hospital Course include:: 1. Description of specific treatment plan utilized for patients during their course of treatmen. 2. Summarize the time- course for resolution of acute symptoms and/or regressed behaviors. 3. Describe issues identified and worked on during hospitalization. 4. Describe medication utilized. 5. Describe medical problems identified and treated. 6. Reassessment of suicide risk Summary of Hospital Course: The pt is seen, chart reviewed, case discussed. He is known from previous admission. He is a 48 y/o AAM, single w 3 children: 32, 11 and 10 y/o. 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 Children are with their mother. He uses 15 bags of heroin by snorting for several months now. First time was 12 y/o He also states that he has trouble staying clean because his friends are also doing heroin. Today he states that he is angry and frustrated with himself for continuing to do heroin. 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 He began using more frequently after being laid off. Pt admits to buying methadone on the streets. Last used methadone 4 days ago. He has been to detox around 20 times and rehab 2x. No MAT but goes to NA at times Longest sobriety was 3 years and ended this year. He purchases methadone from the street to prevent wdw Used cocaine in the past Smokes 10-20 cig/d Denies others Currently he feels he is getting sick. COWS is around 7 and increasing. He will likely need meds this afternoon. Psych hx: Depressed and anxious but no admissions. He was given Remeron but he is non-compliant. Family psych hx: Brother used drugs and has schizophrenia Medical hx: Denies He went to [facility] but not directly. Risks discussed. - Final Diagnosis (DSM 5) Condition upon Discharge: GUARDED Disposition: HOME/ ROUTINE Follow-up Treatment Plan: Taper with subutex Gabapentin for augmentation if needed Remeron for depression and insomnia As needed medications All risks, benefits and alternatives of the meds discussed, and the pt agreed and understood. Attend groups and activities Supportive therapy and psychoeducation [place] for abstinence CBT for relapse prevention Encourage MAT, especially subutex, or Vivitrol. Refer to rehab or IOP, and self-help groups Teach healthy lifestyle methods, i.e. diet, exercise, meditation Smoking cessation with [place] Nicotine patch if needed 34 min Prescriptions/Medication Reconciliation: traZODone [Desyrel] 50 mg PO HS PRN #30 tab PRN Reason: Insomnia
--- NOTE | 2018-08-07 09:00 | PCM.PYCHPN ---
Psychiatric Progress Note - Psychiatric Progress Note Patient seen today, length of contact: 16 min Patient Chief Complaint: "Not well" Medication Change: Yes Medical Record Reviewed: Yes Mental Status Examination - Cognitive Function Orientation: Person - Mood Mood: Depressed, Anxious - Affect Affect: Constricted - Formal Thought Process Formal Thought Process: No Impairment Goal/Treatment Plan - Goal/Treatment Plan Progress Toward Problem(s) and Goals/Treatment Plan: Taper with subutex Gabapentin for augmentation if needed Remeron for depression and insomnia As needed medications All risks, benefits and alternatives of the meds discussed, and the pt agreed and understood. Attend groups and activities Supportive therapy and psychoeducation [place] for abstinence CBT for relapse prevention Encourage MAT, especially subutex, or Vivitrol. Refer to rehab or IOP, and self-help groups Teach healthy lifestyle methods, i.e. diet, exercise, meditation Smoking cessation with [place] Nicotine patch if needed 34 min
[2018-08-07] MEDS: Buprenorphine Hydrochloride 2 mg SL SCH (09:14)
[2018-08-07 10:45] VITALS: BP 121/81; PULSE 67; RESP 18; TEMP 98.1; O2SAT 99
== END 2018-08-07 09:50 | disposition home or self-care (01) | DRG 745 ==
LOC: C.ER 18:42 → C.7D 21:44
PROVIDERS: ADMIT Psychiatry & Neurology Psychiatry; ATTEND Psychiatry & Neurology Psychiatry
PROC: HZ2ZZZZ Detoxification Services for Substance Abuse Treatment (ICD-10-PCS; principal; 2018-08-03)
PROC: GZ3ZZZZ Medication Management (ICD-10-PCS; 2018-08-03)
PROC: HZ80ZZZ Medication Management for Substance Abuse Treatment, Nicotine Replacement (ICD-10-PCS; 2018-08-03)
PROC: HZ46ZZZ Group Counseling for Substance Abuse Treatment, Psychoeducation (ICD-10-PCS; 2018-08-03)
PROC: HZ59ZZZ Individual Psychotherapy for Substance Abuse Treatment, Supportive (ICD-10-PCS; 2018-08-03)
DX: F11.23 Opioid dependence with withdrawal (principal); F14.11 Cocaine abuse, in remission; F32.9 Major depressive disorder, single episode, unspecified; F17.210 Nicotine dependence, cigarettes, uncomplicated; G47.00 Insomnia, unspecified; Z91.19 Patient's noncompliance with other medical treatment and regimen; Z81.8 Family history of other mental and behavioral disorders